=== PATIENT | male | born 1955 | race Caucasian/White ===

== ENCOUNTER → 2018-11-02 | Day surgery (SDC) | payer BC ==
[~2018-11-02] MED LIST: Lactated Ringers 1,000 ML IV SCH; Propofol 200 MG/20 ML SDV IV ONE
[2018-11-02 08:48] VITALS: BP 128/62
--- NOTE | 2018-11-02 11:34 | OR ---
DATE OF OPERATION: 11/02/2018 PREOPERATIVE DIAGNOSIS: SCREENING COLONOSCOPY. POSTOPERATIVE DIAGNOSIS: SCREENING COLONOSCOPY. SURGEON: Matt Rangel MD PROCEDURE: FULL-LENGTH COLONOSCOPY WITH SNARE POLYPECTOMY X3. 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 COMPLICATIONS: None. SPECIMEN: Tubulovillous adenomas x3. FINDINGS: 1. Full-length colonoscopy. 2. Mild sigmoid diverticulosis. 3. Tubulovillous adenomas x3, see dictation. RECOMMENDATIONS: Followup colonoscopy in 2-3 years pending path reports. INDICATIONS: The patient was in for a physical and he is due for screening colonoscopy. Test was ordered. DESCRIPTION OF PROCEDURE: The patient was prepped and draped, placed in the left lateral decubitus position. A lubricated Olympus colonoscope was inserted and easily advanced to the cecum. Direct visualization of the ileocecal valve and appendiceal orifice was accomplished. The bowel prep was fine. Upon withdrawal, the cecum, ascending, and transverse colon were completely unremarkable down the left colon including the descending and proximal sigmoid area. There were no abnormalities seen. At the sigmoid colon, the patient started to have mild diverticulosis extending to the rectosigmoid junction. No inflammatory changes visualized. The patient had 2 polyps in the distal sigmoid, both tubulovillous in nature. The 1st polyp was at approximately 40-45 cm, was removed with a snare and suctioned into polyp trap #1. The 2nd polyp was larger, probably over 0.5 cm in size and suctioned into polyp trap #2 without difficulty. The rest of the sigmoid area was unremarkable. In the rectal vault, the patient had a 3rd sessile villous adenoma removed again with snare and suctioned into polyp trap #3 without complication. Retroflexion of the scope in the rectum showed no anal lesions. Air was suctioned, scope removed without complication. LIU/STEPHANIE /[id number]
== END ==
LOC: CC.SDS 06:51
PROVIDERS: ATTEND Family Medicine
DX: Z12.11 Encounter for screening for malignant neoplasm of colon (principal); D12.5 Benign neoplasm of sigmoid colon; K51.40 Inflammatory polyps of colon without complications; K57.30 Diverticulosis of large intestine without perforation or abscess without bleeding; F41.9 Anxiety disorder, unspecified; F31.9 Bipolar disorder, unspecified; I12.9 Hypertensive chronic kidney disease with stage 1 through stage 4 chronic kidney disease, or unspecified chronic kidney disease; E11.22 Type 2 diabetes mellitus with diabetic chronic kidney disease; N18.9 Chronic kidney disease, unspecified; Z79.82 Long term (current) use of aspirin; Z79.84 Long term (current) use of oral hypoglycemic drugs; Z79.899 Other long term (current) drug therapy
CPT/HCPCS: 82962; J2704; J7120

== ENCOUNTER → 2022-05-06 | Day surgery (SDC) | payer MEDICARE, BC ==
[~2022-05-06] MED LIST changes: +Metoprolol Tartrate 5 MG/5 ML SDV ONE; -Propofol 200 MG/20 ML SDV IV ONE; +Propofol 200 MG/20 ML SDV ONE; +fentaNYL 50 MCG/ML SDV ONE
[2022-05-06 09:04] VITALS: BP 123/97; PULSE 88
== END ==
LOC: CC.SDS 08:22
PROVIDERS: ATTEND Family Medicine
DX: Z12.11 Encounter for screening for malignant neoplasm of colon (principal); D12.2 Benign neoplasm of ascending colon; D12.0 Benign neoplasm of cecum; D12.4 Benign neoplasm of descending colon; K57.30 Diverticulosis of large intestine without perforation or abscess without bleeding; N40.1 Benign prostatic hyperplasia with lower urinary tract symptoms; R35.1 Nocturia; N18.9 Chronic kidney disease, unspecified; F31.9 Bipolar disorder, unspecified; K42.9 Umbilical hernia without obstruction or gangrene; I12.9 Hypertensive chronic kidney disease with stage 1 through stage 4 chronic kidney disease, or unspecified chronic kidney disease; K21.9 Gastro-esophageal reflux disease without esophagitis; E11.22 Type 2 diabetes mellitus with diabetic chronic kidney disease; E78.5 Hyperlipidemia, unspecified; Z79.899 Other long term (current) drug therapy; Z79.82 Long term (current) use of aspirin; Z79.4 Long term (current) use of insulin; Z79.84 Long term (current) use of oral hypoglycemic drugs; Z98.890 Other specified postprocedural states
CPT/HCPCS: 88305; J2704; J3010; J3490; J7120

== ENCOUNTER 2024-12-27 06:50 | Day surgery (SDC) | payer MEDICARE, BC ==
[2024-12-27] MEDS: Lactated Ringers 1,000 ML IV SCH (07:14)
[2024-12-27] MEDS ORDERED: fentaNYL 50 MCG/ML SDV ONE (07:30)
[2024-12-27] MEDS ORDERED: Propofol 200 MG/20 ML SDV ONE (07:30)
[2024-12-27] MEDS ORDERED: Metoprolol Tartrate 5 MG/5 ML SDV ONE (07:30)
[2024-12-27 09:01] VITALS: BP 139/80; PULSE 80
== END 2024-12-27 08:52 | disposition home or self-care (01) ==
LOC: CC.SDS 06:50
PROVIDERS: ATTEND Family Medicine
DX: Z12.11 Encounter for screening for malignant neoplasm of colon (principal); D12.0 Benign neoplasm of cecum; D12.3 Benign neoplasm of transverse colon; K57.30 Diverticulosis of large intestine without perforation or abscess without bleeding; Z86.0100 Personal history of colon polyps, unspecified; I12.9 Hypertensive chronic kidney disease with stage 1 through stage 4 chronic kidney disease, or unspecified chronic kidney disease; E11.22 Type 2 diabetes mellitus with diabetic chronic kidney disease; N18.9 Chronic kidney disease, unspecified; F31.81 Bipolar II disorder; E78.5 Hyperlipidemia, unspecified; N40.1 Benign prostatic hyperplasia with lower urinary tract symptoms; Z79.84 Long term (current) use of oral hypoglycemic drugs; Z79.85 Long-term (current) use of injectable non-insulin antidiabetic drugs; Z79.4 Long term (current) use of insulin; Z79.82 Long term (current) use of aspirin; Z79.899 Other long term (current) drug therapy
CPT/HCPCS: 00811; 88305; J2704; J3010; J3490; J7120